=== PATIENT | female | born 1995 | race Caucasian/White ===

== ENCOUNTER 2021-07-23 17:10 | Emergency (ER) | payer SELFPAY ==
[~2021-07-23] VITALS: Ht 160 cm; Wt 54.4 kg
--- NOTE | 2021-07-23 17:25 | NUR ---
BIB [facility] [employer] FROM HOME PT HAS DRANK A BOTTLE ON WINE AND TOOK 2 CAPS OF NYQUIL AND TOLD HER FRINED SHE WANTS TO GO TO SLEEP AND NOT WAKE UP AFTER HAVING AN ARGUMENT WITH HER BOYFRIEND. PT DENIES SI OR HI AT THE MOMENT STATED THAT SHE HAS MADE ATTEMPTS IN THE PAST WHEN SHE WAS 14 AND 19. PT ALSO STATED THAT SHE TAKES MEDICATION FOR HER ANXIETY AND DEPRESSION BUT HAS NOT BEEN ABLE TO FIND A NEW PSYCHIATRIST TO REFILL HER MEDICATION SINCE MOVING TO [place]. PT BELONGINGS REMOVED AND PUT AWAY, SAFETY MEASURES APPLIED, 1:1 SITTER AT BEDSIDE.
--- NOTE | 2021-07-23 17:31 | NUR ---
URINE COLLECTED AND SENT
[2021-07-23 18:09] LABS: BASOPHILS % (AUTO) 0.3 % (0.0-2.0); EOSINOPHILS % (AUTO) 0.1 % (0.0-6.0); HEMATOCRIT 40 % (33-45); HEMOGLOBIN 13.5 g/dL (11.5-14.8); LYMPHOCYTES # (AUTO) 1.7 K/uL (0.8-4.8); LYMPHOCYTES % (AUTO) 13.3 % (20.0-44.0); MEAN CORPUSCULAR HGB CONC 34 g/dl (31.0-36.0); MEAN CORPUSCULAR VOLUME 102 fL (82-100); MONOCYTES # (AUTO) 0.7 K/uL (0.1-1.30); NEUTROPHILS # (AUTO) 10.7 K/uL (1.8-8.9); NEUTROPHILS % (AUTO) 81.3 % (43.0-81.0); PLATELET COUNT (AUTO) 224 K/uL (150-450); RED BLOOD CELL COUNT(AUTO) 3.93 MIL/uL (4.0-5.2); WHITE BLOOD COUNT (AUTO) 13.1 K/uL (4.3-11.0)
[2021-07-23 18:26] LABS: ALANINE AMINOTRANSFERASE 51 U/L (12-78); ALCOHOL, BLOOD 279 mg/dL (0-0); ALKALINE PHOSPHATASE 77 U/L (46-116); ASPARTATE AMINOTRANSFERASE 59 U/L (15-37); BILIRUBIN,DIRECT 0.1 mg/dL (0.0-0.2); BILIRUBIN,TOTAL 0.4 mg/dL (0.2-1.0); CALCIUM, SERUM 8.7 mg/dL (8.5-10.1); CARBON DIOXIDE 27 mmol/L (21-32); CHLORIDE 106 mmol/L (98-107); CREATININE 0.8 mg/dL (0.6-1.3); GLUCOSE 105 mg/dL (74-106); POTASSIUM 3.6 mmol/L (3.5-5.1); SODIUM SERUM 142 mmol/L (136-145); TOTAL PROTEIN, SERUM 7.7 g/dL (6.4-8.2); UREA NITROGEN, BLOOD 5 mg/dL (7-18)
[2021-07-23 18:34] LABS: ACETAMINOPHEN < 10 ug/ml (10-30)
[2021-07-23 18:46] VITALS: BP 115/88
[2021-07-23 20:15] LABS: LYMPHOCYTES % (MANUAL) 18 % (16-48); MONOCYTES % (MANUAL) 3 % (0-11.0); NEUTROPHILS % (MANUAL) 79 (42-76)
[2021-07-24] MEDS ORDERED: LORAZEPAM 1 MG TABLET PO ONE
[2021-07-24] MEDS ORDERED: LORAZEPAM 1 MG TABLET ONE (00:15)
--- NOTE | 2021-07-24 00:25 | NUR ---
PT C/O FEELING ANXIOUS. ADMIN ATIVAN 1MG PO ORDERED. WILL REASSESS
--- NOTE | 2021-07-24 01:35 | NUR ---
CALLED PSYCH CLINICIAN. NO ANSWER, MESSAGE LEFT. AWAITING CALL BACK.
--- NOTE | 2021-07-24 04:25 | NUR ---
Patient discharged to home in stable condition. Written and verbal after care instructions given. Patient verbalizes understanding of instruction.
== END 2021-07-24 04:27 | disposition home or self-care (01) ==
LOC: ER 17:26
DX: R45.851 Suicidal ideations (principal); Z91.51 Personal history of suicidal behavior; F32.A Depression, unspecified; D72.829 Elevated white blood cell count, unspecified; R74.01 Elevation of levels of liver transaminase levels; F10.129 Alcohol abuse with intoxication, unspecified; Y90.8 Blood alcohol level of 240 mg/100 ml or more; Z20.822 Contact with and (suspected) exposure to COVID-19
CPT/HCPCS: 36415 ×2; 80048; 80076; 80143; 80307; 80320 ×3; 84703; 85007; 85025; 87426; 99285; C9803; G0480